=== PATIENT | male | born 1965 | race Caucasian/White ===

== ENCOUNTER 2019-09-21 11:56 | Day surgery (SDC) | payer OTHER ==
[2019-09-18 15:39] VITALS: BMI 32.5
[2019-09-21] MEDS ORDERED: PROPOFOL 20 ML ONE (13:57)
[2019-09-21] MEDS ORDERED: MIDAZOLAM HCL 2 MG/2 ML SINGLE DOSE VIAL ONE (13:57)
[2019-09-21] MEDS ORDERED: LIDOCAINE HCL/PF 2% SDV 5ML VIAL ONE (14:28)
[2019-09-21] MEDS ORDERED: ceFAZolin SODIUM 1 GM VIAL ONE (14:31)
[2019-09-21] MEDS ORDERED: DESFLURANE GAS 240 ML BOTTLE IH ONE (14:57)
--- NOTE | 2019-09-21 15:54 | OP ---
DATE OF OPERATION: DATE OF DICTATION: 09/21/2019 SURGEON: Jr Clinton MD PREOPERATIVE DIAGNOSIS: Carpal tunnel release, right hand. POSTOPERATIVE DIAGNOSIS: Carpal tunnel release, right hand. OPERATION PERFORMED: Right carpal tunnel release. ANESTHESIA: General anesthesia. ANTIBIOTICS GIVEN: Ancef preoperative 1 g. DESCRIPTION OF PROCEDURE: Patient in supine position. Right upper extremity prepped and draped in the routine manner with Betadine scrub solution, wiped off with alcohol, DuraPrep applied, a free drape applied. With the hand facing volar surface through seating in the main crease longitudinally, incision was made lined up at the base of the thumb to the wrist crease. The skin was opened. The subcutaneous fat dissected down to the palmar aponeurosis. This was split longitudinally. The flexor retinaculum readily noted. Using a 15 blade knife, the flexor retinaculum was opened and then the continuation of the opening of the flexor retinaculum proximally and distally to free the entire carpal tunnel with Metzenbaum scissors. The carpal tunnel was exposed. The nerve was noted to be pearly white in color. There were no adhesions or lesions within the carpal tunnel. Finger palpation ensured that the freeing of the canal was adequate both proximally and distally. Wound was lavaged. Skin closed with 5-0 nylon vertical mattress sutures. Bulky wound dressing applied. No complications. MD AVIS [id number]
[2019-09-21 16:51] VITALS: BP 116/71; PULSE 98; TEMP 98
== END 2019-09-21 16:45 | disposition home or self-care (01) ==
LOC: FASU 11:56
PROVIDERS: ATTEND Orthopaedic Surgery Orthopaedic Surgery of the Spine
PROC: 01N50ZZ Release Median Nerve, Open Approach (ICD-10-PCS; principal; 2019-09-21 14:52)
DX: G56.01 Carpal tunnel syndrome, right upper limb (principal)
CPT/HCPCS: 94760